=== PATIENT | female | born 1985 | race Caucasian/White ===

== ENCOUNTER 2018-11-12 11:22 | Inpatient (IN) ==
[2018-11-12] MEDS ORDERED: MISOPROSTOL 100 MCG TABLET VG PRN (17:52)
[2018-11-12] MEDS ORDERED: LIDOCAINE HCL 50 ML VIAL PERI PRN (17:52)
[2018-11-12] MEDS ORDERED: NALBUPHINE HCL 10 MG/ML AMPUL IV PRN ×2 (17:52)
[2018-11-12] MEDS ORDERED: OXYTOCIN/DEXTROSE 5%-WATER 30 UNITS/500 ML BAG IV ONE (17:52)
[2018-11-12] MEDS ORDERED: ONDANSETRON HCL/PF 2 MG/ML VIAL IV PRN (17:52)
[2018-11-12] MEDS ORDERED: RINGER'S SOLUTION,LACTATED 1,000 ML IV ONE (17:52)
[2018-11-12 20:16] LABS: Cocaine Ur Negative (NEGATIVE); Urine Barbiturate Negative (NEGATIVE); Urine Benzodiazepines Negative (NEGATIVE); Urine Opiates Negative (NEGATIVE); Urine PCP Negative (NEGATIVE); Urine THC Negative (NEGATIVE)
[2018-11-13] MEDS: RINGER'S SOLUTION,LACTATED 1,000 ML IV PRN ×3 (00:38→11:02)
[2018-11-13] MEDS ORDERED: NALOXONE HCL 1 MG/1 ML SYRG IV PRN (01:36)
[2018-11-13] MEDS ORDERED: BUPIVACAINE HCL/0.9 % NACL/PF 250 ML EP PRN (01:36)
[2018-11-13] MEDS ORDERED: ONDANSETRON HCL/PF 2 MG/ML VIAL IV PRN (01:36)
[2018-11-13] MEDS ORDERED: BUPIVACAINE HCL/PF 30 ML VIAL EP SCH (01:45)
--- NOTE | 2018-11-13 02:01 | ANES ---
Anesthesia Pre Procedure Eval Vitals/Labs: Last Vital Signs Temp 36.2 C 11/12/18 20:05 Pulse 68 11/12/18 20:05 Resp 16 11/12/18 20:05 BP 108/66 11/12/18 20:05 Pulse Ox 99 11/12/18 20:05 HOME MEDICATIONS vitamin,calcium,wlwqizer-lqvl-sshsx acid tablet 1 tab PO DAILY 04/19/18 [Last Taken Unknown] breast pump See Dose Instructions .ROUTE .MEDSUPPLY #1 ea 09/04/18 [Last Taken Unknown] Allergies/Adverse Reactions: Allergies Allergy/AdvReac Type Severity Reaction Status Date / Time No Known Allergies Allergy Verified 11/09/18 09:57 - Planned Procedure Planned Procedure: MEDICAL INDUCTION FOR POST DATES Medication List Reviewed:: Yes Allergies Verified: Yes Medical History (Last Reviewed 11/13/18 @ 02:00 by Venkatesh West CRNA) Abnormal Pap smear of cervix Onset Date: ~2012 Bunion Onset Date: 05/10/13 [place] vaginitis Onset Date: 08/17/12 Dysmenorrhea Onset Date: 01/24/18 Pharyngitis Onset Date: ~11/29/12 UTI (urinary tract infection) Onset Date: ~07/23/14 Vaginal discharge Onset Date: ~08/17/12 Vaginitis Onset Date: 07/12/13 Vulvar lesion Onset Date: ~08/17/12 [place] teeth extracted Onset Date: ~2003 Surgical History (Last Reviewed 11/13/18 @ 02:00 by Venkatesh West CRNA) History of colposcopy Onset Date: 07/16/13 Family History (Last Reviewed 11/13/18 @ 02:01 by Venkatesh West CRNA) Mother Alive and well Father Throat cancer Aunt Breast cancer maternal Grandmother , Paternal Cancer Grandfather Brain cancer Paternal Sister pre cancer of cervix - Family Anesthesia History Family History:: no untoward family reactions to anesthesia, no familial bleeding tendencies, no family history of clotting disorders, no family history of premature - Anesthesia Assessment and Plan ASA Class: PS, II Anesthesia Type Plan: Epidural
--- NOTE | 2018-11-13 02:18 | ANES ---
Post Anesthesia Assessment - Vital Signs Vitals: Last Vital Signs Temp 36.2 C 11/12/18 20:05 Pulse 68 11/12/18 20:05 Resp 16 11/12/18 20:05 BP 108/66 11/12/18 20:05 Pulse Ox 99 11/12/18 20:05 Airway Patency: Normal - Mental Status Level Of Consciousness: Awake - N/V Assessment Nausea/Vomiting Presence: None Dehydration:: No
--- NOTE | 2018-11-13 02:18 | ANES ---
Anesthesia Procedure Note Procedure Note: ANESTHESIA PROCEDURE NOTE Date of Procedure: 11/13/2018. Time of procedure: 0205. Performed by: Venkatesh West CRNA Rehab Department Manager: None. Preprocedure diagnosis: Active labor. Post procedure diagnosis: Same. Procedure: Insertion of labor epidural. Indications: The patient is a 32 -year-old female in active labor requesting labor epidural for pain management. Findings: See below. Details of the procedure: The patient was placed in a sitting position. DuraPrep as well as Betadine swabs X3 was applied to the patient's back. Patient was then draped in a sterile fashion. Lidocaine 1% was infiltrated to the skin and subcutaneous tissues at the level of the L3-4 interspace. The epidural space was identified using a 18-gauge Tuohy needle with [id number] technique. Epidural catheter was inserted to a depth of 11 centimeters at skin. Negative test dose was elicited using 3 mL of 1.5% preservative-free lidocaine plus epinephrine 1 200,000. The epidural catheter was then taped and secured in place. A loading dose of 8 mL of 0.25% preservative-free bupivacaine was administered to the epidural catheter after negative aspiration for blood and CSF. EBL: Minimal. Fluids: N/A. Specimen: N/A. Post procedure condition: The patient tolerated the procedure well. No complications were noted. Thank you for this consultation. Venkatesh West CRNA
--- NOTE | 2018-11-13 09:02 | HP ---
Chief Complaint - Chief Complaint Date of Service: 11/13/18 Time of Service: 08:58 Chief Complaint: Induction of labor History of Present Illness: The patient presents for an induction of labor due to post due date. She is having regular contractions. Denies loss of fluid or vaginal bleeding. She is comfortable with her epidural. Fetus is active. Medical History (Last Reviewed 11/13/18 @ 02:00 by Venkatesh West CRNA) Abnormal Pap smear of cervix Onset Date: ~2012 Bunion Onset Date: 05/10/13 [place] vaginitis Onset Date: 08/17/12 Dysmenorrhea Onset Date: 01/24/18 Pharyngitis Onset Date: ~11/29/12 UTI (urinary tract infection) Onset Date: ~07/23/14 Vaginal discharge Onset Date: ~08/17/12 Vaginitis Onset Date: 07/12/13 Vulvar lesion Onset Date: ~08/17/12 [place] teeth extracted Onset Date: ~2003 Surgical History: Surgical History (Last Reviewed 11/13/18 @ 02:00 by Venkatesh West CRNA) History of colposcopy Onset Date: 07/16/13 Family History: Family History (Last Reviewed 11/13/18 @ 02:01 by Venkatesh West CRNA) Mother Alive and well Father Throat cancer Aunt Breast cancer maternal Grandmother , Paternal Cancer Grandfather Brain cancer Paternal Sister pre cancer of cervix Social History: Preferred Language Jamaican Smoking Status Never smoker Abuse History No History of abuse Psych History No pertinent hx (Last Updated 11/09/18 @ 10:27 by Corie Saldaña MD) No Social History Section defined Review Of Systems (GEN) - Review of Systems Misc: All systems neg except as marked Immunizations: IMMUNIZATION HX Immunizations Up to Date No History of Influenza Vaccine No Hx Pneumococcal Vaccination No Allergies/Adverse Reactions: Allergies Allergy/AdvReac Type Severity Reaction Status Date / Time No Known Allergies Allergy Verified 11/09/18 09:57 Home Medications: HOME MEDICATIONS vitamin,calcium,takmnmhz-must-uqbmy acid tablet 1 tab PO DAILY 04/19/18 [Last Taken Unknown] breast pump See Dose Instructions .ROUTE .MEDSUPPLY #1 ea 09/04/18 [Last Taken Unknown] Exam - Exam Vital Signs: Vital Signs - Last Taken Temp 36.2 C 11/12/18 20:05 Pulse 68 11/12/18 20:05 Resp 16 11/12/18 20:05 BP 108/66 11/12/18 20:05 Pulse Ox 99 11/12/18 20:05 Constitutional: Present: Alert, Oriented x3, Cooperative, No distress Respiratory: Present: lungs clear, normal breath sounds Cardiovascular/Chest: Present: regular rate, rhythm, no murmur Abdomen: Present: soft, nontender, nondistended /Rectal: Present: Other - cvx anterior lip, 100/-1, AROM for a large amount of thick meconium Extremity: Present: non-tender, no calf tenderness Skin Exam: Present: normal color, warm/dry, no cyanosis Appearance: Present: appropriate appearance Eye contact: Present: cooperative Thoughts: Present: normal thought pattern Diagnostic Studies: Laboratory Results Urine Opiates Screen Negative (NEGATIVE) 11/12/18 20:00 Barbiturate Screen Negative (NEGATIVE) 11/12/18 20:00 Ur Phencyclidine Scrn Negative (NEGATIVE) 11/12/18 20:00 Urine Amphetamine Negative (NEGATIVE) 11/12/18 20:00 U Benzodiazepines Scrn Negative (NEGATIVE) 11/12/18 20:00 Urine Cocaine Screen Negative (NEGATIVE) 11/12/18 20:00 Urine Marijuana (THC) Negative (NEGATIVE) 11/12/18 20:00 Blood Type A Positive 11/12/18 18:05 Antibody Screen Negative 11/12/18 18:05 Assessment/Plan - Narrative Narrative: 32 yo @ 40w 5d here for IOL for post due date Cervix anterior lip, AROM for a large amount of thick meconium UDS negative Plan to recheck in 2 hours or sooner if clinically indicated
[2018-11-13] MEDS ORDERED: MISOPROSTOL 200 MCG TABLET RC STA (12:30)
[2018-11-13] MEDS ORDERED: METHYLERGONOVINE MALEATE 0.2 MG/ML AMPUL IM STA (12:35)
--- NOTE | 2018-11-13 12:47 | OR ---
Operative Report - Dictated Report Narrative: Date of delivery: 11/13/2018 Time of delivery: 1222 Gender: female weight: 3344 grams APGARS: 9/9 Description of the procedure: The patient is a 32 year old @ 40w 5d who presented to labor and delivery for a medical induction of labor due to post due date. She was started on pitocin and had a small amount of leakage of fluid. A bag of fluid was noted and ruptured and thick meconium was noted. She progressed to complete dilation. A vacuum assisted vaginal delivery was undertaken to the FHR as well as maternal exhaustion. There were no pop offs of the vacuum. The head delivered in the direct OA position. The rest of the body was delivered atraumatically. The cord was clamped and cut and the was handed off to the attending pediatric staff. The placenta was delivered by expression and appeared intact. A second degree perineal laceration was noted which was repaired with 2-0 vicryl. Hemostasis was adequate at the end of the procedure. Brisk bleeding was noted from the uterus and thus both cytotec 800mcg [place] and methergine 0.2 mg IM were given x1. Pitocin was running at 30. The fundus was firm at the end of the procedure. EBL: 300 mL Complications: none Specimens: placenta Definition: * The number of deliveries resulting in a live the patient experienced prior to current hospitalization * The previous delivery of live twins or any live multiple gestation is considered one live event. *If primagravida or nulliparous is documented select zero for the number of previous live births. Live births: 0
[2018-11-13] MEDS ORDERED: IBUPROFEN 800 MG TABLET PO PRN (13:13)
[2018-11-13] MEDS ORDERED: oxyCODONE HCL/ACETAMINOPHEN 1 TAB TABLET PO PRN ×2 (13:19)
[2018-11-13] MEDS ORDERED: HYDROCORTISONE 30 APPL TUBE TP PRN (13:19)
[2018-11-13] MEDS ORDERED: OXYTOCIN/DEXTROSE 5%-WATER 30 UNITS/500 ML BAG IV ONE (13:19)
[2018-11-13] MEDS ORDERED: SENNOSIDES 8.6 MG TABLET PO PRN (13:19)
[2018-11-13] MEDS ORDERED: diphenhydrAMINE HCL 25 MG CAPSULE PO PRN (13:19)
[2018-11-13] MEDS ORDERED: GLYCERIN/WITCH HAZEL LEAF 40 APPL BOX TP PRN (13:19)
[2018-11-13] MEDS ORDERED: BENZOCAINE/MENTHOL 81 SPRAY CAN TP PRN (13:19)
[2018-11-13] MEDS ORDERED: BISACODYL 10 MG SUPP.RECT RC PRN (13:19)
[2018-11-13] MEDS: IBUPROFEN 800 MG TABLET PO PRN ×2 (13:39→20:08)
[2018-11-13] MEDS: DOCUSATE SODIUM 100 MG CAPSULE PO SCH (20:08)
--- NOTE | 2018-11-14 09:58 | PN ---
Subjective - Date and Time Seen Date: 11/14/18 Time: 09:00 Subjective Narrative: Pt without complaints Objective Objective Narrative: See vital signs - Review of Systems Generalized/Overall Review: Reports: No Symptoms Reported Misc: All systems neg except as marked - Vitals Vitals: Last Vital Signs Temp 36.5 C 11/14/18 08:39 Pulse 102 H 11/14/18 08:39 Resp 18 11/14/18 08:39 BP 126/60 11/14/18 08:39 Pulse Ox 98 11/14/18 08:39 - Exam Constitutional: Present: Alert, Oriented x3, Cooperative, No distress Abdomen: Present: soft, nontender, nondistended - fundus is firm Extremity: Present: non-tender, no calf tenderness Skin Exam: Present: normal color, warm/dry, no cyanosis Appearance: Present: appropriate appearance Eye contact: Present: cooperative Thoughts: Present: normal thought pattern Cauti Physician Documentation - Urinary Catheter Management Urethral ([place]) Urethral Indwelling: No Date of Insertion: 11/13/18 Time of Insertion: 02:45 Date of Removal: 11/13/18 Time of Removal: 11:24 Assessment/Plan Plan Narrative: PPD 1 s/p VAVD Doing well Discharge home tomorrow
[2018-11-14] MEDS: DOCUSATE SODIUM 100 MG CAPSULE PO SCH ×2 (10:04→20:06)
[2018-11-14] MEDS: IBUPROFEN 800 MG TABLET PO PRN (10:05)
[2018-11-15] MEDS: DOCUSATE SODIUM 100 MG CAPSULE PO SCH (09:39)
--- NOTE | 2018-11-15 10:19 | PN ---
Subjective - Date and Time Seen Date: 11/15/18 Time: 10:16 Subjective Narrative: Pt without complaints Objective Objective Narrative: See vital signs - Review of Systems Generalized/Overall Review: Reports: No Symptoms Reported Misc: All systems neg except as marked - Vitals Vitals: Last Vital Signs Temp 36.7 C 11/15/18 08:24 Pulse 84 11/15/18 08:24 Resp 18 11/15/18 08:24 BP 84/48 L 11/15/18 08:24 Pulse Ox 97 11/15/18 08:24 - Exam Constitutional: Present: Alert, Oriented x3, Cooperative, No distress Abdomen: Present: soft, nontender, nondistended Extremity: Present: non-tender, no calf tenderness Skin Exam: Present: normal color, warm/dry, no cyanosis Appearance: Present: appropriate appearance Eye contact: Present: cooperative Thoughts: Present: normal thought pattern Cauti Physician Documentation - Urinary Catheter Management Urethral ([place]) Urethral Indwelling: No Date of Insertion: 11/13/18 Time of Insertion: 02:45 Date of Removal: 11/13/18 Time of Removal: 11:24 Assessment/Plan Plan Narrative: PPD 2 s/p VAVD Doing well Discharge today
[2018-11-15 14:43] VITALS: BP 101/54
== END 2018-11-15 16:00 | disposition home or self-care (01) | DRG 806 ==
LOC: OB 17:46 → MS 11-14 16:46
PROVIDERS: ADMIT Obstetrics & Gynecology; ATTEND Obstetrics & Gynecology
CPT/HCPCS: 59025; 80307; 86850; 86900; 88307